=== PATIENT | female | born 1960 | race Caucasian/White ===

== ENCOUNTER 2017-01-19 07:13 | Outpatient (CLI) | payer SELFPAY ==
--- NOTE | 2017-01-19 07:40 | DIAGNOSTIC IMAGING REPORT ---
PROCEDURE: XR CHEST 2 VIEW INDICATION: RULE OUT TB DUE TO A POSITIVE QUANTIFERON GOLD TEST TECHNIQUE: PA and lateral view. COMPARISON: None. FINDINGS: Lungs are clear without evidence of a pulmonary nodule or calcification. Cardiovascular structures are normal. Bony thorax is unremarkable. IMPRESSION: 1. Negative chest.
== END 2017-01-19 23:00 | disposition home or self-care (01) ==
LOC: XR SRH 07:13
DX: Z11.1 Encounter for screening for respiratory tuberculosis (principal)